=== PATIENT | female | born 1955 | race Asian ===

== ENCOUNTER 2022-02-28 13:25 | Inpatient (IN) ==
--- NOTE | 2022-02-28 13:43 | Emergency Department Note ---
History of Present Illness General Chief complaint: Hip Pain Stated complaint: R HIP PAIN AFTER FALL Time Seen by Provider: 02/28/22 13:32 History of Present Illness Maximum Pain Intensity: 8 66-year-old female presents to the ED with a chief complaint of a fall. She was walking in the yard with her dog and lost her balance and fell onto her right lateral hip. She complains of right groin pain. This occurred just prior to arrival. Certain movements make the pain worse. Denies other complaints. Past Med/Surg History Social History Smoking Status: Never smoker Preferred Language: Cantonese Mosotho Review of Systems A total of 10 systems reviewed and were otherwise negative Physical Exam Vital Signs Vital Signs - 24 hr 02/28/22 13:27 Temperature 36.8 C Temperature Source Temporal Artery Scan Pulse Rate 71 Respiratory Rate 18 Blood Pressure 144/78 H Blood Pressure Mean 100 Blood Pressure Position Sitting Pulse Oximetry 98 Oxygen Delivery Method Room Air Sepsis Recent Fever Within 48 Hours No Sepsis New/Unexplained Change in Mental Status No Sepsis Action Taken by Nursing No Action Required CONSTITUTIONAL/VITAL SIGNS: Reviewed / noted above. GENERAL: Non-toxic in appearance. INTEGUMENTARY: Warm, dry, and [place]. HEAD: Normocephalic. EYES: without scleral icterus or trauma. ENT/OROPHARYNX: clear and moist. LYMPHADENOPATHY/NECK: Is supple without lymphadenopathy or meningismus. RESPIRATORY: Clear to auscultation bilaterally. No increased work of breathing. CARDIOVASCULAR: Regular rate and rhythm. GI/ABDOMEN: Soft and nontender. No organomegaly or pulsatile mass. EXTREMITIES: Warm and well perfused. There is some tenderness to palpation of the right groin. BACK: No CVA tenderness. NEUROLOGICAL: Intact without focal deficits. PSYCHIATRIC: normal affect. MUSCULOSKELETAL: Normally developed with good muscle tone. TRIAGE NURSING DOCUMENTATION REVIEWED. Medical Decision Making Differential Diagnosis Differential includes close head injury, intracranial bleed, facial trauma, cervical spine trauma, chest and thoracic trauma, abdominal and intra-abdominal trauma, spine neurologic trauma, extremity trauma. Medical Records Attestation: I reviewed the patient's medical records. Home Medications Current Medication List: was personally reviewed by me Laboratory Data Result diagrams: 02/28/22 14:41 02/28/22 14:41 Lab Results 02/28/22 Range/Units 14:41 WBC 6.47 (4.8-10.8) K/uL RBC 4.03 L (4.2-5.4) M/uL Hgb 12.0 (12.0-16.0) g/dL Hct 36.9 L (37-47) % MCV 91.6 (80-100) fL MCH 29.8 (25-34) pg MCHC 32.5 (32-36) g/dL RDW Std Deviation 44.0 (36.4-46.3) fL RDW Coeff of Jenn 13.2 (11.5-14.5) % Plt Count 240 (130-400) K/uL MPV 9.9 (7.4-10.4) fL Immature Gran % (Auto) 0.3 % Neut % (Auto) 68.1 % Lymph % (Auto) 24.9 % [place] % (Auto) 4.9 % Eos % (Auto) 1.5 % Baso % (Auto) 0.3 % Neut # (Auto) 4.40 (1.4-6.5) K/uL Lymph # (Auto) 1.61 (1.2-3.4) K/uL [place] # (Auto) 0.32 (0.11-0.59) K/uL Eos # (Auto) 0.10 (0-0.5) K/uL Baso # (Auto) 0.02 (0-0.2) K/uL Immature Gran # (Auto) 0.02 (0.00-0.02) K/uL Imaging Data Radiologist's Impression: Hip/Pelvis X-Ray 02/28/22 13:38 XR hip RT 2V w pelvis HISTORY: 66 years-old Female right groin pain after fall acute pain of the right groin and pelvis status post fall COMPARISON: None TECHNIQUE: AP view of the pelvis with 2 views of the right hip FINDINGS: Mild osteoarthritis of the hips. No acute pelvic ring fracture identified. Unremarkable soft tissues. There is ill-defined linear sclerosis involving the right femoral neck with cortical offset noted laterally at the femoral head neck junction. IMPRESSION: Findings are suggestive of an acute impacted subcapital versus transcervical fracture of the right femur. ACT 112: Negative or not required by law. The above report was generated using voice recognition software. It may contain grammatical, syntax or spelling errors. Electronically signed by: Rodney Mo M.D. 02/28/2022 2:13 PM ECG Data Additional Comments: Twelve-lead EKG: Per my interpretation shows a sinus rhythm at a rate of 69. No ST elevation. No PVCs. Normal QTC. MDM Narrative 66-year-old female presents with a fall and right groin pain. Tenderness in the right groin is noted. No shortening or rotation of the legs noted. X-ray of the right hip suggests an acute impacted subcapital hip fracture. CBC was unremarkable. Twelve-lead EKG shows a sinus rhythm. The patient was told the results of the test. She will be seen by the hospitalist for further inpatient management. Impression & Plan Fall Discharge Plan Visit Data Chief Complaint: Hip Pain Stated Complaint: R HIP PAIN AFTER FALL ED Provider: Bashir Conde Discharge Problem: Fall Patient Disposition: Being Evaluated by Hospitalist Forms Stand Alone Forms: [facility], Virtual Emergency Department, Important Visit Information Referrals Referrals: PCP,NO [Primary Care Provider] -
--- NOTE | 2022-02-28 14:15 | XRay Report ---
XR hip RT 2V w pelvis HISTORY: 66 years-old Female right groin pain after fall acute pain of the right groin and pelvis st atus post fall COMPARISON: None TECHNIQUE: AP view of the pelvis with 2 views of the right hip FINDINGS: Mild osteoarthritis of the hips. No acute pelvic ring fracture identified. Unremarkable soft tissues. There is ill-defined linear sclerosis involving the right femoral neck with cortical offset noted la terally at the femoral head neck junction. IMPRESSION: Findings are suggestive of an acute impacted subcapital versus transcervical fracture of the right femur. ACT 112: Negative or not required by law. The above report was generated using voice recognition software. It may contain grammatical, syntax o r spelling errors. Electronically signed by: Rodney Mo M.D. 02/28/2022 2:13 PM
[2022-02-28 15:01] LABS: Basophils # (auto) 0.02 K/uL (0-0.2); Basophils % (auto) 0.3 %; Eosinophils % (auto) 1.5 %; Hematocrit (blood only) 36.9 % (37-47); Immature Granulocytes # (auto) 0.02 K/uL (0.00-0.02); Immature Granulocytes % (auto) 0.3 %; Lymphocytes # (auto) 1.61 K/uL (1.2-3.4); Lymphocytes % (auto) 24.9 %; Mean Corpuscular Hemoglobin 29.8 pg (25-34); Mean Corpuscular Hgb Conc 32.5 g/dL (32-36); Mean Corpuscular Volume 91.6 fL (80-100); Mean Platelet Volume 9.9 fL (7.4-10.4); Monocytes # (auto) 0.32 K/uL (0.11-0.59); Monocytes % (auto) 4.9 %; Neutrophils % (auto) 68.1 %; Platelet Count 240 K/uL (130-400); RDW Coefficient of Variation 13.2 % (11.5-14.5); Red Blood Count 4.03 M/uL (4.2-5.4); White Blood Count 6.47 K/uL (4.8-10.8)
--- NOTE | 2022-02-28 15:05 | History & Physical Report ---
Date of Service February 28, 2022 Assessment & Plan (1) Closed right hip fracture: Plan: Acute right hip fracture due to mechanical fall- Xray and CT reviewed (details as below) Will need surgical correction - Admit to medsurg. Bed rest, RLE elevation, pain management, bowel regimen. - Labs unremarkable, EKG NSR. Patient is optimized to go for surgery without need for any further tests. - Consult ortho for surgery- I paged Dr Parmar to let him know about the case - NPO after midnight - hold sc heparin after midnight - will need rehab after surgery but patient with no insurance- will ask CM for assistance - consult PT/OT after the surgery Xray pelvis- Findings are suggestive of an acute impacted subcapital versus transcervical fracture of the right femur. CT pelvis- Confirmation of the acute impacted and nondisplaced subcapital fracture of the right femur. Elevated BP- likely in setting of pain. Will monitor. DVT prophylaxis- sc heparin- hold after midnight Full code Dispo- Medsurg Updated daughter at bedside and answered all her questions. More than 60 minutes at bedside as patient and family had multiple questions regarding the hospital stay, surgery, post op course and recovery as well as the rehab and were answered to the best of my ability. History of Present Illness Chief Complaint: Fall with right hip pain Primary Care Provider: NO PCP 66 yo mandarin speaking female who presented to the ED after a mechanical fall while walking her dog, landing on the right side with subsequent pain and unable to get up. In the ED, found to have right sided hip fracture. ED physician consulted Dr Parmar for surgery. Hospitalist service was consulted for admission. Seen and examined patient at bedside with help of interpreter deaf over ipad. Daughter at bedside. States she is very healthy and does not see a doctor. She has no insurance. She is independent in her all activities. Denies any medical issues. No significant family history. Takes no medications. Denies any allergies. Does not smoke or drink alcohol. States she had fall with rib fracture a year ago and was admitted here and had uneventful stay. Currently denies any pain. Pain with movement and positional changes. Allergies Allergy/AdvReac Type Severity Reaction Status Date / Time No Known Allergies Allergy Unverified 02/28/22 15:15 Home Medications Medication Instructions Recorded Confirmed Type No Known Home Medications 02/28/22 02/28/22 History Past Med/Surg History Social History Smoking Status: Never smoker Preferred Language: Cantonese Romanian Communication Tools: IPad and Language Line Ed Case Manager Review of Systems Review of Systems: All systems reviewed & are unremarkable except as noted in Subjective Physical Exam Physical Exam: General: Lying comfortably in bed, not in distress, on room air HEENT: EOMI, SONIA, MMM Chest: Clear breath sounds bilaterally, no wheezes or crackles CVS: Regular rate and rhythm, normal heart sounds, no murmur Abdomen: Soft, non tender, not distended, normal bowel sounds Neuro: Awake, alert, oriented, conversing well Extremities: No cyanosis, clubbing or edema. No ecchymoses noted. Results & Data Results & Data ([facility]) Vital Signs (Past 12 Hours) Vital Signs Temp Pulse Resp BP Pulse Ox 02/28/22 13:27 36.8 C 71 18 144/78 H 98 Laboratory Results Short CBC 02/28/22 Range/Units 14:41 WBC 6.47 (4.8-10.8) K/uL Hgb 12.0 (12.0-16.0) g/dL Hct 36.9 L (37-47) % Plt Count 240 (130-400) K/uL BMP 02/28/22 14:41 Sodium 140 Potassium 3.9 Chloride 106 Carbon Dioxide 29 BUN 21 Creatinine 0.53 L Glucose 113 H Calcium 9.0 Liver Function 02/28/22 Range/Units 14:41 Total Bilirubin 0.6 (0.2-1.0) mg/dl AST 19 (13-39) U/L ALT 15 (7-52) U/L Alkaline Phosphatase 63 (34-104) U/L Albumin 4.0 (3.4-5.0) gm/dl Diagnostic Findings Hip/Pelvis X-Ray 02/28/22 13:38 XR hip RT 2V w pelvis HISTORY: 66 years-old Female right groin pain after fall acute pain of the right groin and pelvis status post fall COMPARISON: None TECHNIQUE: AP view of the pelvis with 2 views of the right hip FINDINGS: Mild osteoarthritis of the hips. No acute pelvic ring fracture identified. Unremarkable soft tissues. There is ill-defined linear sclerosis involving the right femoral neck with cortical offset noted laterally at the femoral head neck junction. IMPRESSION: Findings are suggestive of an acute impacted subcapital versus transcervical fracture of the right femur. ACT 112: Negative or not required by law. The above report was generated using voice recognition software. It may contain grammatical, syntax or spelling errors. Electronically signed by: Rodney Mo M.D. 02/28/2022 2:[address] 02/28/22 14:06 CT pelvis wo con HISTORY: 66 years-old Female rt hip pain after fall acute right-sided hip pain status post fall COMPARISON: Pelvis and hip radiographs of same day TECHNIQUE: Multiple axial CT images of the pelvis were obtained without the use of IV contrast. A dose lowering technique was used consistent with the principals of ALARA. FINDINGS: No acute intrapelvic abnormality identified. Degenerative changes of the lower lumbar spine. Demineralized appearance of the bones. No sacral insufficiency fracture. Moderate degeneration of the SI joints. No acute pelvic ring fracture identified. Mild osteoarthritis of the femoral acetabular joints. There is an acute nondisplaced impacted subcapital fracture of the proximal right femur. Tiny contusion within the lateral subcutaneous tissues. IMPRESSION: Confirmation of the acute impacted and nondisplaced subcapital fracture of the right femur. ACT 112: Negative or not required by law. The above report was generated using voice recognition software. It may contain grammatical, syntax or spelling errors. Electronically signed by: Rodney Mo M.D. 02/28/2022 3:34 PM
[2022-02-28 15:18] LABS: INR 0.9 (0.9-1.1); Partial Thromboplastin Time 26.4 Seconds (21.0-31.0)
[2022-02-28 15:30] LABS: Alanine Aminotransferase 15 U/L (7-52); Albumin Globulin Ratio 1.4 (0.9-2); Alkaline Phosphatase 63 U/L (34-104); Anion Gap 5 (3-11); Aspartate Aminotransferase 19 U/L (13-39); BUN Creatinine Ratio 39.6 (10-20); Bilirubin,Total 0.6 mg/dl (0.2-1.0); Blood Urea Nitrogen 21 mg/dl (6-23); Carbon Dioxide 29 mmol/L (21-32); Chloride 106 mmol/L (98-107); Est GFR (African American) 114.7 ml/min; Est GFR (Non-African American) 98.9 ml/min; Globulin 2.9 gm/dl (2.5-4.0); Glucose 113 mg/dl (70-99(Fasting)); Potassium 3.9 mmol/L (3.5-5.1); Sodium 140 mmol/L (136-145); Total Protein 6.9 gm/dl (6.0-8.3)
[2022-02-28] MEDS ORDERED: MoRPHine SULFATE 2 MG/ML CARP IV PRN (15:35)
--- NOTE | 2022-02-28 15:36 | CT Scan Report ---
CT pelvis wo con HISTORY: 66 years-old Female rt hip pain after fall acute right-sided hip pain status post fall COMPARISON: Pelvis and hip radiographs of same day TECHNIQUE: Multiple axial CT images of the pelvis were obtained without the use of IV contrast. A dos e lowering technique was used consistent with the principals of JOSELINE. FINDINGS: No acute intrapelvic abnormality identified. Degenerative changes of the lower lumbar spine. Deminera lized appearance of the bones. No sacral insufficiency fracture. Moderate degeneration of the SI join ts. No acute pelvic ring fracture identified. Mild osteoarthritis of the femoral acetabular joints. T here is an acute nondisplaced impacted subcapital fracture of the proximal right femur. Tiny contusio n within the lateral subcutaneous tissues. IMPRESSION: Confirmation of the acute impacted and nondisplaced subcapital fracture of the right femu r. ACT 112: Negative or not required by law. The above report was generated using voice recognition software. It may contain grammatical, syntax o r spelling errors. Electronically signed by: Rodney Mo M.D. 02/28/2022 3:34 PM
[2022-02-28 18:33] LABS: Appearance Urine Clear (Clear); Bilirubin Urine Negative (Negative); Blood Urine Negative (Negative); Color Urine Yellow; Glucose Urine UA Negative (Negative); Ketones Urine Negative (Negative); Leukocyte Esterase Urine Negative (Negative); Nitrite Urine Negative (Negative); Protein Urine Negative (Negative); Specific Gravity Urine 1.017 (1.000-1.030); Urobilinogen Urine Negative (Negative)
[2022-02-28] MEDS ORDERED: bisacodyL 10 MG SUPP PR PRN (18:45)
[2022-02-28] MEDS ORDERED: NALOXONE HCL 0.4 MG/1 ML VIAL/CARP IV PRN (18:45)
[2022-02-28] MEDS ORDERED: MAGNESIUM HYDROXIDE SUSP 30 ML UDC PO PRN (18:45)
[2022-02-28] MEDS: HEPARIN SOD 5,000 UNIT/0.5 ML VIAL SQ SCH ×2 (20:03→21:14)
--- NOTE | 2022-02-28 20:44 | Orthopedic Consultation ---
Date of Service February 28, 2022 Assessment & Plan (1) Closed right hip fracture: I explained the diagnosis and treatment options with her at bedside. I called her daughter and explained the options to her as well. I recommended percutaneous screw fixation of the right hip. Her and her daughter elected to proceed. They understand the risk, benefits, and alternatives to procedure. Time was spent describing procedure and postop expectations. She will be n.p.o. past midnight tonight. We will plan on doing percutaneous screw fixation tomorrow. History of Present Illness Reason for Consultation: Valgus impacted right femoral neck fracture Requesting Physician: . Attending Physician: Boris Ely MD Angelica is a pleasant six 6-year-old female who is fairly healthy and active. She was walking her dog today when she fell onto her right side. She had immediate hip pain. She went to the emergency room where x-rays and CT scan demonstrated a valgus impacted right femoral neck fracture. She was admitted to the hospitalist service and orthopedics was consulted to evaluate and treat. She only speaks Mandarin. Her daughter speaks Hebrew and her phone number is [phone] Allergies Allergy/AdvReac Type Severity Reaction Status Date / Time No Known Allergies Allergy Unverified 02/28/22 15:15 Home Medications Medication Instructions Recorded Confirmed Type No Known Home Medications 02/28/22 02/28/22 History Past Med/Surg History Social History Smoking Status: Never smoker Hx Alcohol Use: No Hx Substance Use: No Preferred Language: Hernandez Mongolian Communication Ability: Impaired Communication Tools: IPad and Language Line Coal Cager Coal Cager Required: Yes Beliefs That Will Affect Care: None Current Living Situation: Alone Current Living Situation Comment: Help from friend and daughter Feels Safe at Home: Yes Safety Concerns: Feels Safe At This Time Review of Systems All systems reviewed & are unremarkable except as noted in HPI & below. Physical Exam On physical examination of the right hip, she has pain with range of motion of her hip. All of her pain is located in her groin. She is neurovascular intact. Her leg lengths are equal. Constitutional WD/WN, vitals as above Eyes PERRL, conjunctivae normal, anicteric sclerae ENMT external ear and nose normal, oropharynx normal Neck trachea midline, no thyromegaly Respiratory normal respiratory effort Cardiovascular RRR, no murmur, no edema Gastrointestinal (Abdomen) normal bowel sounds, soft, nontender, no hepatosplenomegaly Psychiatric A+Ox3, euthymic affect Results & Data Results & Data Laboratory Results . Diagnostic Findings X-rays of the right hip do show valgus impacted right femoral neck fracture. CT scan of the right hip confirms a valgus impacted right femoral neck fracture.. PG Care Time/CCT Total # of Minutes Spent Total Time Spent with Patient: Total time spent is greater than 50% in coordination of care (as documented) at patient's floor/unit and/or counseling patient: Coding Level of Care Code 19553 Inpt Consult Level 4 (57 - DECISION FOR SURGERY) Diagnoses Closed right hip fracture S72.001A
[2022-02-28] MEDS: SODIUM CHLORIDE 0.9% 1000ML 1,000 ML IV SCH (21:10)
[2022-02-28] MEDS: DOCUSATE SODIUM/SENNA 50/8.6MG TAB PO SCH (21:14)
[2022-03-01] MEDS: SODIUM CHLORIDE 0.9% 1000ML 1,000 ML IV SCH ×2 (09:29→17:27)
--- NOTE | 2022-03-01 09:57 | Hospitalist Progress Note ---
Date of Service March 01, 2022 Assessment & Plan (1) Closed right hip fracture: Plan: Acute right hip fracture due to mechanical fall- Xray and CT reviewed (details as below) Will need surgical correction - Plan for OR today per Dr Parmar. NPO for the same. Continue maintenance IVF. Anaglesics prn. Bed rest, hold sc heparin. - CM consulted for assistance as no she has no insurance and will likely need rehab - consult PT/OT after the surgery - DVT prophylaxis after surgery Xray pelvis- Findings are suggestive of an acute impacted subcapital versus transcervical fracture of the right femur. CT pelvis- Confirmation of the acute impacted and nondisplaced subcapital fracture of the right femur. Elevated BP- likely in setting of pain. Will monitor. DVT prophylaxis- sc heparin on hold for surgery today Dispo- OR today. Will need PT eval and rehab after surgery. Admission and Anticipated Discharge Date Admission Date: February 28, 2022 Subjective Seen and examined with Nuria director auto Marisabel over the Ipad. Denies any new issues. She feels great. Denies any pain. She looks forward to the surgery today. No chest pain, shortness of breath, nausea, vomiting, fever, chills. Physical Exam Physical Exam: General: Lying comfortably in bed, not in distress, on room air HEENT: EOMI, SONIA, MMM Chest: Clear breath sounds bilaterally, no wheezes or crackles CVS: Regular rate and rhythm, normal heart sounds, no murmur Abdomen: Soft, non tender, not distended, normal bowel sounds Neuro: Awake, alert, oriented, conversing well Extremities: No cyanosis, clubbing or edema. No ecchymoses noted. Results & Data Results & Data ([facility]) Vital Signs (Past 12 Hours) Vital Signs Temp Pulse Resp BP Pulse Ox 03/01/22 07:28 37 C 62 16 147/80 H 93 02/28/22 22:57 37.0 C 68 18 113/71 97 Medications Administered Current Inpatient Medications Bisacodyl (Bisacodyl 10 Mg Supp) 10 mg ND DAILY PRN PRN Reason: Constipation Stop: 03/30/22 18:44 Sodium Chloride (Nss 1000ml) 1,000 mls @ 80 mls/hr IV .[id number] Stop: 03/30/22 21:59 Last Admin: 03/01/22 09:29 Dose: 80 mls/hr Documented by: Magnesium Hydroxide (Magnesium Hydroxide Susp 30 Ml Udc) 30 ml PO DAILY PRN PRN Reason: Constipation Stop: 03/30/22 18:44 Morphine Sulfate (Morphine Sulfate 2 Mg/Ml Carp) 2 mg IV Q3H PRN PRN Reason: Pain Stop: 03/14/22 15:34 Naloxone HCl (Naloxone Hcl 0.4 Mg/1 Ml Vial/Carp) 0.1 mg IV UD PRN PRN Reason: Opiate Overdose Stop: 03/30/22 18:44 Senna/Docusate Sodium (Docusate Sodium/Senna 50/8.6mg Tab) 2 tab PO HS FATEMEH Stop: 03/30/22 20:59 Last Admin: 02/28/22 21:14 Dose: 2 tab Documented by:
[2022-03-01] MEDS ORDERED: LIDOCAINE 2% 2 ML VIAL/AMP(20MG/ML) INFIL ONE (12:26)
[2022-03-01] MEDS ORDERED: fentaNYL citrate 100 MCG/2 ML VIAL ONE (12:26)
[2022-03-01] MEDS ORDERED: ONDANSETRON INJ 2 MG/ML 2 ML VIAL ONE (12:26)
[2022-03-01] MEDS ORDERED: PROPOFOL IV EMULSION 10 MG/ML 20 ML VIAL IV ONE (12:26)
[2022-03-01] MEDS ORDERED: PHENYLEPHRINE 100MCG/ML 5ML SYR ONE (12:37)
--- NOTE | 2022-03-01 13:00 | History & Physical Bridge Note ---
Date of Service March 01, 2022 History & Physical Bridge Note I have examined the patient, reviewed the History & Physical and in the interval since the performance of the History & Physical I have noted the following changes of clinical significance: no changes noted
[2022-03-01] MEDS ORDERED: BUPIVACAINE/EPINEPHRINE 0.25% 1:200,000 30 ML VIAL ONE (13:49)
--- NOTE | 2022-03-01 13:50 | Anesthesiology Consultation ---
Date of Service March 01, 2022 Assessment & Plan ASA ASA1 Proposed Anesthesia Anesthesia Type: General Risk / Benefits Reviewed With: PT / POA / Parent / Guardian, Accepts Plan and Informed Consent Obtained History Surgery Operation Date: 03/01/22 13:00 Proposed Procedures p ORIF Hip Cannulated Screw(Right) - Estrada Parmar, Height/Weight Height: 5 ft 1 in Weight: 59.6 kg Allergies Allergy/AdvReac Type Severity Reaction Status Date / Time No Known Allergies Allergy Unverified 02/28/22 15:15 Medications Home Medications Medication Instructions Recorded Confirmed Last Taken No Known Home Medications 02/28/22 02/28/22 Unknown Active Medications Generic Name Dose Route Start Last Admin Trade Name Freq PRN Reason Stop Dose Admin Sodium Chloride 1,000 mls @ 80 mls/hr 02/28/22 22:00 03/01/22 09:29 Nss 1000ml IV 03/30/22 21:59 80 mls/hr .[id number] FATEMEH Administration Senna/Docusate Sodium 2 tab 02/28/22 21:00 02/28/22 21:14 Docusate Sodium/Senna 50/8.6mg Tab PO 03/30/22 20:59 2 tab HS FATEMEH Administration NPO Date Last Intake of Fluids: 03/01/22 Time Last Intake of Fluids: 00:00 Exercise / Class Metabolic Activity II 4-5 Yardwork/Stairs/Walk up hill Past Anesthesia History No Hx of Anesthesia Complications and No Family Hx of Anesthesia Complications History of PONV No Hx of PONV and No Hx of Motion Sickness Social History Smoking Status: Never smoker Hx Alcohol Use: No Hx Substance Use: No Review of Systems denies fever/cough/ colds/ chest pain/ SOB/ TOMASZ denies TOMASZ Physical Exam Vital Signs Last Vital Signs Temp 37 C 03/01/22 07:28 Pulse 62 03/01/22 07:28 Resp 16 03/01/22 07:28 BP 147/80 H 03/01/22 07:28 Pulse Ox 93 03/01/22 07:28 ENMT Mouth: no TMJ abnormality and no dentition abnormality Thyromental Distance: > or= 3.5 Finger Breadths Mallampati Class: III Neck neck extension not limited Respiratory normal respiratory effort; no respiratory distress Auscultation: lungs clear to auscultation bilaterally Cardiovascular Rate/Rhythm: regular rate and regular rhythm Neurologic moves all extremities Psychiatric Orientation: alert and oriented x 3 Testing Laboratory Results 02/28/22 14:41 02/28/22 14:41 PT 10.0 Seconds (9.0-12.0) 02/28/22 14:41 INR 0.9 (0.9-1.1) 02/28/22 14:41 APTT 26.4 Seconds (21.0-31.0) 02/28/22 14:41 Urine Color Yellow 02/28/22 17:21 Urine Appearance Clear (Clear) 02/28/22 17:21 Urine pH 7.0 (4.5-7.5) 02/28/22 17:21 Ur Specific [place] 1.017 (1.000-1.030) 02/28/22 17:21 Urine Protein Negative (Negative) 02/28/22 17:21 Urine Glucose (UA) Negative (Negative) 02/28/22 17:21 Urine Ketones Negative (Negative) 02/28/22 17:21 Urine Nitrite Negative (Negative) 02/28/22 17:21 Ur Leukocyte Esterase Negative (Negative) 02/28/22 17:21 Blood Type B Positive 02/28/22 19:55 Antibody Screen NEGATIVE 02/28/22 19:55
[2022-03-01] MEDS ORDERED: HYDROmorphone INJ 2 MG/ML SYR/VIAL IV PRN (13:51)
[2022-03-01] MEDS ORDERED: ATROPINE SULFATE 0.1 MG/ML 10ML SYR IV PRN (13:51)
[2022-03-01] MEDS ORDERED: ONDANSETRON INJ 2 MG/ML 2 ML VIAL IV PRN (13:51)
[2022-03-01] MEDS ORDERED: ePHEDrine sulfate 50 MG/ML AMP IV PRN (13:51)
[2022-03-01] MEDS ORDERED: ePHEDrine sulfate 50 MG/ML SYR ONE (14:19)
[2022-03-01] MEDS ORDERED: DEXAMETHASONE SOD INJ 4 MG/ML VIAL ONE (14:19)
[2022-03-01] MEDS ORDERED: ceFAZolin 1000MG 1,000 MG/7.5 ML SYR IV ONE (14:25)
--- NOTE | 2022-03-01 14:46 | Operative Report ---
PG Post Operative Report Pre & Post Diagnosis Operation Date: 03/01/22 13:00 Pre-Op Diagnosis: Closed right hip fracture Post-Op Diagnosis: Closed right hip fracture I identified the patient and participated in the time-out.: Yes Procedure Operation Date: 03/01/22 13:00 Actual Procedures p Percutaneous Screw Fixation of Right Hip(Right) - Estrada Parmar DO Surgeon Estrada Parmar DO Roller Luis Felipe Gaines PAC Estimated Blood Loss 5 Findings Consistent with Post-Op Diagnosis Specimens None Complications none Disposition Disposition: Recovery Room Indications Angelica is a pleasant six 6-year-old female who fell yesterday sustaining a nondisplaced right femoral neck fracture. She was admitted to the hospitalist service. After discussions at bedside, we elected to proceed with a right percutaneous screw fixation of the hip. Description of Procedure On March 01, 2022 Angelica was brought from her hospital room to the preoperative holding area. The operative extremity identified and signed. She given a p reoperative antibiotic. She is taken back the operating room and put under general anesthesia on the hospital bed. She was then transferred to a fracture table. The right leg was brought out to traction. The right hip was then prepped and draped in sterile fashion. A timeout was done. The patient and the operative extremity was properly identified. A small incision was made just inferior to the lesser trochanter. Dissection was taken down through the IT band. The lateral cortex of the femur was exposed. A single guidepin was placed from the lateral cortex of the femur up the inferior central portion of the femoral neck and into the femoral head. A second pin was then placed superior to that along the anterior cortex. A third pin was placed along the posterior cortex in the center position of the femoral head. The length of the screws was checked on orthogonal fluoroscopic images. The screw lengths were all measured. 3 Synthes 7.3 mm cannulated screws were then placed. I was able to get a good purchase with the screw. The wound was then irrigated. Final fluoroscopic images showed near anatomic alignment. The fascial layer was closed with #1 Vicryl suture. Skin was closed with 2-0 Vicryl and rah. She was placed in a soft dressing. He was then extubated and transferred back to the hospital bed. She was taken to the postanesthesia care unit in stable condition. She tolerated the procedure well. Luis Felipe Gaines PA-C, was present for the entire procedure. He was critical for patient positioning, prepping, draping, retraction exposure, wound closure and application of sterile dressing. I attest to the content of the Intraoperative Record and any orders documented therein. Any exceptions are noted below.
--- NOTE | 2022-03-01 14:57 | Fluoroscopy Report ---
INTRAOPERATIVE RADIOGRAPHS CLINICAL HISTORY: Open reduction and internal fixation of the right proximal femur. Fluoroscopy time: 87 seconds. FINDINGS: 2 spot fluoroscopic views of the right proximal femur are correlated with pelvic radiograph s and CT dated 02/28/2022. There are 3 cannulated cortical lag screws in the intertrochanteric right f emur transfixing a subcapital fracture. Near-anatomic alignment is maintained. The orthopedic hardwar e appears intact. IMPRESSION: Intraoperative images from open reduction and internal fixation of the right proximal fem ur as above. Electronically signed by: Tae Cruz M.D. 03/01/2022 2:55 PM
[2022-03-01] MEDS: fentaNYL citrate 100 MCG/2 ML VIAL IV PRN ×2 (15:25→15:32)
--- NOTE | 2022-03-01 15:36 | Anesthesiology Progress Note ---
Date of Service March 01, 2022 Anesthesia Post Procedure Vital Signs Vital Signs: Temp Pulse Pulse Pulse Resp BP BP 03/01/22 15:30 61 14 156/75 H 03/01/22 15:20 62 24 157/76 H 03/01/22 15:10 65 20 162/95 H 03/01/22 15:00 62 18 132/77 03/01/22 14:54 36.2 C L 71 12 139/71 03/01/22 07:28 37 C 62 16 147/80 H 02/28/22 22:57 37.0 C 68 18 113/71 02/28/22 18:47 36.9 C 72 14 158/82 H 02/28/22 18:24 79 16 146/75 H Pulse Ox 03/01/22 15:30 100 03/01/22 15:20 100 03/01/22 15:10 100 03/01/22 15:00 100 03/01/22 14:54 99 03/01/22 07:28 93 02/28/22 22:57 97 02/28/22 18:47 95 02/28/22 18:24 99 Pain Intensity Right Groin: Pain Intensity: 4 Right Hip: Pain Intensity: 7 Transfer of Care Handoff Completed per policy Notes Mental Status: alert / awake / arousable and participated in evaluation Patient Amnestic to Procedure: Yes Nausea / Vomiting: adequately controlled Pain: adequately controlled Airway Patency, RR, SpO2: stable & adequate BP & HR: stable & adequate Hydration State: stable & adequate Anesthetic Complications: no major complications apparent and Pt Satisfied with anesthetic care
--- NOTE | 2022-03-01 15:37 | XRay Report ---
RIGHT HIP 3 VIEWS CLINICAL HISTORY: Postoperative examination. FINDINGS: AP and crosstable lateral views of the right hip are compared to study dated 02/28/2022. 3 i ntertrochanteric cannulated cortical lag screws have been placed in the right proximal femur transfix ing a subcapital fracture. Near-anatomic alignment is maintained. The orthopedic hardware appears int act. No new fracture is seen. The visualized right hemipelvis appears intact. Sclerotic degenerative change is noted in the right sacroiliac joint. Skin clips, soft tissue gas, and edema overlying the r ight hip are expected postoperative findings. IMPRESSION: Expected postoperative findings status post open reduction and internal fixation of the r ight proximal femur. See above. Electronically signed by: Tae Cruz M.D. 03/01/2022 3:35 PM
[2022-03-01] MEDS ORDERED: oxyCODONE/ACETAMINOPHEN 5mg/325mg TAB PO PRN (16:01)
[2022-03-01] MEDS ORDERED: ACETAMINOPHEN 325 MG TAB PO PRN (16:01)
[2022-03-01] MEDS: oxyCODONE/ACETAMINOPHEN 5mg/325mg TAB PO PRN (16:15)
[2022-03-01] MEDS: DOCUSATE SODIUM/SENNA 50/8.6MG TAB PO SCH (20:44)
[2022-03-01] MEDS: ceFAZolin 2000MG 2,000 MG/15 ML SYR IV SCH (20:45)
[2022-03-02] MEDS: oxyCODONE/ACETAMINOPHEN 5mg/325mg TAB PO PRN ×2 (00:40→17:19)
[2022-03-02] MEDS: ceFAZolin 2000MG 2,000 MG/15 ML SYR IV SCH (05:15)
[2022-03-02] MEDS: SODIUM CHLORIDE 0.9% 1000ML 1,000 ML IV SCH (05:15)
[2022-03-02 06:27] LABS: Hematocrit (blood only) 34.8 % (37-47); Hemoglobin 11.2 g/dL (12.0-16.0); Immature Granulocytes # (auto) 0.03 K/uL (0.00-0.02); Immature Granulocytes % (auto) 0.3 %; Lymphocytes # (auto) 1.04 K/uL (1.2-3.4); Lymphocytes % (auto) 11.1 %; Mean Corpuscular Hemoglobin 29.6 pg (25-34); Mean Corpuscular Hgb Conc 32.2 g/dL (32-36); Mean Corpuscular Volume 91.8 fL (80-100); Monocytes # (auto) 0.41 K/uL (0.11-0.59); Monocytes % (auto) 4.4 %; Neutrophils # (auto) 7.93 K/uL (1.4-6.5); Neutrophils % (auto) 84.2 %; Platelet Count 235 K/uL (130-400); RDW Coefficient of Variation 12.9 % (11.5-14.5); RDW Standard Deviation 43.5 fL (36.4-46.3); Red Blood Count 3.79 M/uL (4.2-5.4); White Blood Count 9.41 K/uL (4.8-10.8)
--- NOTE | 2022-03-02 06:35 | Electrocardiogram Report ---
Test Reason : Blood Pressure : / mmHG Vent. Rate : 069 BPM Atrial Rate : 069 BPM P-R Int : 170 ms QRS Dur : 080 ms QT Int : 382 ms P-R-T Axes : 012 -18 029 degrees QTc Int : 409 ms Normal sinus rhythm Inferior infarct , age undetermined Abnormal ECG No previous ECGs available Confirmed by Felipe Villar ([id number]) on 03/02/2022 6:35:37 AM Referred By: REFERRED SELF Confirmed By:Felipe Villar
[2022-03-02 06:41] LABS: BUN Creatinine Ratio 28.3 (10-20); Calcium 8.4 mg/dl (8.5-10.1); Creatinine Clr Calc Pharmacy 76.5 ml/min; Est GFR (African American) 110.1 ml/min
[2022-03-02] MEDS ORDERED: ERGOCALCIFEROL 50,000 UNITS 1250 MCG CAP PO SCH (08:00)
[2022-03-02] MEDS ORDERED: ENOXAPARIN INJ 40 MG/0.4 ML SYR SQ SCH (09:00)
[2022-03-02 09:17] LABS: Estimated Average Glucose 123 mg/dl; Hemoglobin A1C 5.9 % (4.5-5.6)
--- NOTE | 2022-03-02 11:14 | Orthopedic Progress Note ---
Date of Service March 02, 2022 Assessment & Plan (1) Closed right hip fracture: Overall she is doing fairly well. She can be weightbearing as tolerated today with physical therapy. She can take Lovenox 40 mg subcu daily for 4 weeks for DVT prophylaxis. She is orthopedically stable for discharge when medically ready. Full orthopedic discharge instructions were placed in the discharge summary. She can change her dressing tomorrow. Kami Dominguez was seen and examined at bedside this morning. Overall she is doing fairly well. She does not seem to be having too much pain in her right hip. She had no acute events overnight. She has no complaints. Review of Systems All systems reviewed & are unremarkable except as noted in HPI & below. Physical Exam On physical examination the right hip, the dressing is clean and dry. Her leg lengths are equal. I am able to do some range of motion of her right hip without much pain. Results & Data Results & Data Laboratory Results . Diagnostic Findings Postoperative x-rays of the right hip show the hardware to be in anatomic alignment. PG Care Time/CCT Total # of Minutes Spent Total Time Spent with Patient: Total time spent is greater than 50% in coordination of care (as documented) at patient's floor/unit and/or counseling patient: Coding Level of Care Code 33492 Post Operative Follow-Up Diagnoses Closed right hip fracture S72.001A
--- NOTE | 2022-03-02 13:23 | Hospitalist Progress Note ---
Date of Service March 02, 2022 Assessment & Plan (1) Closed right hip fracture: Plan: Acute right hip fracture due to mechanical fall- Xray and CT reviewed (details as below) - s/p Percutaneous Screw Fixation of Right Hip by Dr Parmar 03/01/22 - Doing well on post op day 1. pain controlled. Did well with PT and recommended home PT but patient has no insurance- CM working on logistics - Eating regular food without issues. IVF discontinued. passing gas, no BM yet. Ortega was removed. - Discussed with ortho- okay for eliquis 2.5 bid or xarelto 10 mg/d for DVT prophylaxis in place of lovenox as patient will be going home- will check with CM for cost. Xray pelvis- Findings are suggestive of an acute impacted subcapital versus transcervical fracture of the right femur. CT pelvis- Confirmation of the acute impacted and nondisplaced subcapital fracture of the right femur. Elevated BP- resolved. It was likely from pain. DVT prophylaxis- sc lovenox Dispo- PT recommends home PT but patient has no insurance. CM working on logistics. Otherwise medically stable for discharge. Admission and Anticipated Discharge Date Admission Date: February 28, 2022 Subjective She feels fine. Denies any pain. States she is hungry and waiting for her breakfast- in the meantime, asked for some crackers. Had an uneventful night. Asking when she can go home. Used [employer] welfare eligibility worker via ipad for the whole encounter. Physical Exam Physical Exam: General: Lying comfortably in bed, not in distress, on room air HEENT: EOMI, SONIA, MMM Chest: Clear breath sounds bilaterally, no wheezes or crackles CVS: Regular rate and rhythm, normal heart sounds, no murmur Abdomen: Soft, non tender, not distended, normal bowel sounds Neuro: Awake, alert, oriented, conversing well Extremities: Rt hip incision site clean dry intact. No edema Results & Data Results & Data ([facility]) Vital Signs (Past 12 Hours) Vital Signs Temp Pulse Resp BP Pulse Ox 03/02/22 07:23 36.8 C 60 16 105/59 L 96 03/02/22 03:34 36.8 C 66 17 129/74 96 Laboratory Results Short CBC 03/02/22 Range/Units 05:38 WBC 9.41 (4.8-10.8) K/uL Hgb 11.2 L (12.0-16.0) g/dL Hct 34.8 L (37-47) % Plt Count 235 (130-400) K/uL BMP 03/02/22 05:38 Sodium 137 Potassium 4.0 Chloride 107 Carbon Dioxide 25 BUN 17 Creatinine 0.60 Glucose 117 H Calcium 8.4 L Medications Administered Current Inpatient Medications Acetaminophen (Acetaminophen 325 Mg Tab) 650 mg PO Q6H PRN PRN Reason: Pain & Pre PT Stop: 03/31/22 16:00 Bisacodyl (Bisacodyl 10 Mg Supp) 10 mg NH DAILY PRN PRN Reason: Constipation Stop: 03/30/22 18:44 Enoxaparin Sodium (Enoxaparin Inj 40 Mg/0.4 Ml Syr) 40 mg SQ Q24H FATEMEH Stop: 04/01/22 08:59 Last Admin: 03/02/22 10:13 Dose: 40 mg Documented by: Ergocalciferol (Ergocalciferol 50,000 Units 1250 Mcg Cap) 50,000 units PO Q7D FATEMEH Stop: 04/01/22 07:59 Last Admin: 03/02/22 10:13 Dose: 50,000 units Documented by: Magnesium Hydroxide (Magnesium Hydroxide Susp 30 Ml Udc) 30 ml PO DAILY PRN PRN Reason: Constipation Stop: 03/30/22 18:44 Morphine Sulfate (Morphine Sulfate 2 Mg/Ml Carp) 2 mg IV Q3H PRN PRN Reason: Pain Stop: 03/14/22 15:34 Naloxone HCl (Naloxone Hcl 0.4 Mg/1 Ml Vial/Carp) 0.1 mg IV UD PRN PRN Reason: Opiate Overdose Stop: 03/30/22 18:44 Oxycodone/Acetaminophen (Oxycodone/Acetaminophen 5mg/325mg Tab) 1 tab PO Q4H PRN PRN Reason: MODERATE Pain (4,5,6) & Pre PT Stop: 03/15/22 16:00 Oxycodone/Acetaminophen (Oxycodone/Acetaminophen 5mg/325mg Tab) 2 tab PO Q4H PRN PRN Reason: SEVERE Pain (7,8,9,10) Stop: 03/15/22 16:00 Last Admin: 03/02/22 00:40 Dose: 2 tab Documented by: Senna/Docusate Sodium (Docusate Sodium/Senna 50/8.6mg Tab) 2 tab PO HS FATEMEH Stop: 03/30/22 20:59 Last Admin: 03/01/22 20:44 Dose: 2 tab Documented by:
--- NOTE | 2022-03-02 16:10 | Discharge Summary ---
Date of Service March 02, 2022 Admission HPI Per Admitting Provider Chief Complaint: Fall with right hip pain Primary Care Provider: NO PCP 66 yo mandarin speaking female who presented to the ED after a mechanical fall while walking her dog, landing on the right side with subsequent pain and unable to get up. In the ED, found to have right sided hip fracture. ED physician consulted Dr Parmar for surgery. Hospitalist service was consulted for admission. Seen and examined patient at bedside with help of full time staff interpreter over ipad. Daughter at bedside. States she is very healthy and does not see a doctor. She has no insurance. She is independent in her all activities. Denies any medical issues. No significant family history. Takes no medications. Denies any allergies. Does not smoke or drink alcohol. States she had fall with rib fracture a year ago and was admitted here and had uneventful stay. Currently denies any pain. Pain with movement and positional changes. Admission Exam Per Admitting Provider General: Lying comfortably in bed, not in distress, on room air HEENT: EOMI, SONIA, MMM Chest: Clear breath sounds bilaterally, no wheezes or crackles CVS: Regular rate and rhythm, normal heart sounds, no murmur Abdomen: Soft, non tender, not distended, normal bowel sounds Neuro: Awake, alert, oriented, conversing well Extremities: No cyanosis, clubbing or edema. No ecchymoses noted. Principal Diagnosis Mechanical fall with right hip fracture Discharge Exam General: Lying comfortably in bed, not in distress, on room air HEENT: EOMI, SONIA, MMM Chest: Clear breath sounds bilaterally, no wheezes or crackles CVS: Regular rate and rhythm, normal heart sounds, no murmur Abdomen: Soft, non tender, not distended, normal bowel sounds Neuro: Awake, alert, oriented, conversing well Extremities: Rt hip incision site clean dry intact. No edema Discharge Data Allergies Allergy/AdvReac Type Severity Reaction Status Date / Time No Known Allergies Allergy Unverified 02/28/22 15:15 Consultations 02/28/22 14:36 Consult Orthopedic Surgery Routine 02/28/22 14:59 ED Decision to Admit Stat 02/28/22 18:45 Consult Anesthesiology Routine Procedures Performed Operation Date: 03/01/22 13:00 Actual Procedures p Percutaneous Screw Fixation of Right Hip(Right) - Estrada Parmar DO Ordered Studies 02/28/22 14:06 CT pelvis wo con Stat 03/01/22 14:00 FL hip RT 2-3V Routine Hospital Course (1) Closed right hip fracture: Acute right hip fracture due to mechanical fall- Xray and CT reviewed (details as below) - Xray pelvis- Findings are suggestive of an acute impacted subcapital versus transcervical fracture of the right femur. - CT pelvis- Confirmation of the acute impacted and nondisplaced subcapital fracture of the right femur. - s/p Percutaneous Screw Fixation of Right Hip by Dr Parmar 03/01/22 - Doing well on post op day 1. pain controlled. Cleared for discharge home by PT and orthopedics. - She will be discharged on eliquis 2.5 mg bid for a month for DVT prophylaxis- okay per ortho- CM will provide the coupon - PDMP reviewed- no red flag signs- she is being discharged on percocet 20 pills for pain control as needed - Recommended calcium vitamin supplementation as well as follow up with PCP for DEXA scan. Our nurse coordinator will arrange for a PCP as she does not have one - Discharge instructions provided by ortho- f/u with them in the office VIt D deficiency- started on ergocalciferol weekly for 8 doses. Recommended follow up with PCP for recheck and additional supplementation if needed. Elevated BP- resolved. It was likely from pain. Total Time Total Time Spent Total Time Spent (In Minutes): 45 Discharge Plan Discharge Items Patient Disposition: Home - Self-Care Reason For Visit: MECHANICAL FALL WITH RIGHT HIP FRACTURE Discharge Diagnosis: Mechanical fall with right hip fracture Activity: Per Instructions section Non-emergency contact: Primary Care Provider Call non-emergency contact if: you have any medication questions, your symptoms worsen, your pain is concerning for you and you have a fever Follow-up/Referrals: [facility] [Other] ( provided by phone to Patrica (daughter [phone]). Also discussed getting connected with a PCP through [employer], but patient's daughter declined, then [facility] was offered. ) PCP,NO [Primary Care Provider] - Diet: Regular Addtl Attending Provider Instructions: Continue eliquis 2.5 mg twice daily for a month to prevent the blood clots, starting tomorrow Take the vitamin D pills once a week starting 5/9 as your vitamin D is low. Take over the counter calcium supplementations as well You can take oxycodone 1-2 tabs for moderate to severe pain, every 6 hours as needed. You can take over the counter stool softeners as needed for constipation, while you are on pain medication. Continue the physical therapy Follow up with ortho doctor as below Follow up with family doctor- recommend DEXA scan to rule out osteoporosis. Addtl Control Valve Technician Provider Instructions: ORTHOPEDIC INSTRUCTIONS Hip Fracture Activity and Therapy Recommendations: 1. You were shown a series of exercises in the hospital. Do these exercises three times each day if you are able. 2. Get up and walk several times each day if you are capable. Make sure you have assistance is needed. For the first four weeks, try not to stand or walk for more than one hour at a time. If you do stand or walk for more than one hour, you will not hurt anything, but your leg will likely swell. 3. As you feel comfortable, you may change from the walker or crutches to a cane and then to independent walking if you are able. Please be safe. Medications: 1. Narcotic You will likely be sent from the hospital with the narcotic pain medication that worked best throughout your stay. 2. Lovenox You will likely be required to take Lovenox daily for 4 weeks after discharge from the hospital 3. Other medications may be given for specific circumstances. If you have any questions, please call the office at [phone]. 4. Resume previous home medications unless otherwise instructed TEDs/Elastic Stockings: The white elastic stockings help limit swelling and prevent blood clots from forming in your legs. The more you wear them, the more they work. Wear them for six weeks. Dressing Care: [place] can be open to air as long as the incisions are not draining. If the incisions are draining or if the rah are getting caught on your clothes then please cover the rah with dry gauze. Change the dressings as necessary to keep the incision as dry as possible Showering: You may shower 5 days from the day of surgery as long as the incisions are not draining. Do not soak the incision. Let soapy water run over the rah and pat them dry. Things To Watch For: 1. Drainage from the incision site that occurs more than one week after your surgery. 2. Increased redness at the incision site. 3. Fever above 102 degrees Fahrenheit. 4. Unusual chest pain or shortness of breath. 5. Call [facility] at with any of the above problems Follow-Up Visit: Follow-up with Dr. Parmar's PA (Estrada Buenrostro) 2-3 weeks after your day of surgery. He will remove your rah and answer any questions. If you have any additional questions or concerns, Dr Parmar is usually in the office at the same time and will be available Please call the office to make an appointment for a time that works for you [phone] Pending Studies at Discharge: No Stand-Alone Forms: My [facility] [address], Smoking Cessation Medications and DC Order Prescriptions: New Eliquis 2.5 mg tablet 2.5 mg PO BID Qty: 60 RF: 0 oxycodone-acetaminophen [Percocet] 5-325 mg tablet 1 tab PO Q6H PRN (Reason: pain) Qty: 20 RF: 0 ergocalciferol (vitamin D2) 1,250 mcg (50,000 unit) Capsule 50,000 unit PO Q7D Qty: 7 RF: 0 Discharge Orders: Discharge Order (Routine); Ordered 03/02/22 Ordered By: Boris Ely Admission Data Admit Date/Time: 02/28/22 16:13 Attending Provider: Boris Ely Admit Provider: Boris Ely Primary Care Provider: PCP,NO Other Providers: Estrada Parmar ; Boris Ely ; Nishi Tan ; Kirstie Munoz ; Crista Presley ; Licha Wylie ; Kei Sanford ; Jose Galeana ; Yaniv Redd ; Arturo Daniels ; Angeline Daniels ; Estrada Cintron ; Allyn House ; Baltazar Renteria ; Jose Regalado ; Edgard Bradley ; Eugenio Taveras ; Damari [place] ; Mckay Marsh ; Vicki Nava ; Margaret Marsh ; Saud Soler ; Kelsi Moreira ; Cali Beebe ; Jacey Maria ; Alma Delia Barron ; Kelsi Jones ; Iwona Garay ; Jacek Rand ; Ayleen Paez ; Miley Keith ; Alecia Malloy ; Kaitlynn Deshpande ; Angel Deshpande V ; Cruzito eMjía ; Kirstie Braswell ; Luigi Paiz ; Char Ramirez ; Sofiya Florian ; Angel Abdullahi ; Wenceslao [place] ; Justin Diego ; Leanna Clay ; Heather Gold ; Angel España ; Alecia Forbes ; Ronald Sow ; Delfino Taveras ; Muna Stephens ; Jermaine [place] ; Steven Braxton ; Pancho Mac ; Mauricio Becerra ; Jermaine Jane ; Kei Knox Jr ; Winnie Gilbert ; Elvira Blair ; Betty Barbosa ; Jacek Montano Other Interventions: Discharge Summary Assessment (RN) Last Done: 03/02/22 15:02
== END 2022-03-02 19:04 | disposition home or self-care (01) | DRG 482 ==
LOC: ED 13:25 → 3N 16:13